=== PATIENT | male | born 1995 | race Caucasian/White ===

== ENCOUNTER 2023-10-28 07:32 | Emergency (ER) | payer SELFPAY ==
[2023-10-28 07:44] VITALS: BP 123/76; PULSE 81; RESP 18; TEMP 36.7; O2SAT 100; BMI 27.0
--- NOTE | 2023-10-28 09:46 | ED_ITS ---
HPI - Skin/Abscess/Foreign Bdy General: Chief complaint: Skin/Abscess/Foreign Body Stated complaint: Thinks he has scabies Time Seen by Provider: 10/28/23 07:33 Source: patient Mode of arrival: ambulatory History of Present Illness: 28-year-old male presents emergency his girlfriend was treated for scabies he would like to be treated at the same time. He has a few areas of itching but no rash development. Review of Systems Skin/Breast: Reports: pruritus (Mild vague itching axilla and infraumbilical); Denies: rash Physical Exam Narrative: EXAM NARRATIVE: No evidence of skin lesions suggestive of scabies at this time. Patient reported itching in the axilla and periumbilical region no rash there. Course Vital Signs: Vital signs: Vital Signs Temperature 98.1 F 10/28/23 07:44 Pulse Rate 81 10/28/23 07:44 Respiratory Rate 18 10/28/23 07:44 Blood Pressure 123/76 10/28/23 07:44 Pulse Oximetry 100 10/28/23 07:44 Oxygen Delivery Me thod Room Air 10/28/23 07:44 MDM - Skin/Abscess/Foreign Bdy Medicial Decision Making Patient is essentially because girlfriend was told she had scabies and he would like to be treated as well and I will find any objective evidence of active infection since she was treated we will go ahead and treat him with topical permethrin apply once at night wash off in the morning and repeat in 7 to 14 days if still having symptoms Medical Records I reviewed the patient's medical records. No radiology studies performed this visit Discharge Plan Discharge Patient Disposition: Home Clinical Impression: Exposure to scabies Condition: Stable Prescriptions: New permethrin 5 % cream 1 applic topical Q14D Qty: 60 0RF Rx Instructions: apply second treatment 7-14 days after first treatment if live scabies remain Discharge Orders: Discharge ED (Routine); Ordered 10/28/23 Ordered By: Jamie Andres Patient Instructions: Opioid Safety, Pain Management Activity Restrictions/Additional Instructions: Thank you for choosing [facility] for your healthcare needs today. It is very important that you follow up as instructed or that you return to the Emergency Department should you have concerns or if your condition changes or worsens in any way. You were seen today because of possible exposure to scabies from household contacts. Recommend applying the cream head to toe at night before going to bed do not apply to mouth or nose areas. Should be washed off in the shower in the morning 8 to 12 hours later. If there is persistence of symptoms you can repeat a second treatment in 7 to 14 days Coding Level of Care Code ED Roping Tender for Jayce Post
== END 2023-10-28 08:31 | disposition home or self-care (01) ==
PROVIDERS: Emergency Provider Family Medicine
DX: Z20.7 Contact with and (suspected) exposure to pediculosis, acariasis and other infestations (principal)
CPT/HCPCS: 99283

== ENCOUNTER 2024-11-08 09:25 | Emergency (ER) | payer SELFPAY ==
[2024-11-08 09:34] VITALS: BP 115/80; PULSE 97; RESP 18; TEMP 36.7; O2SAT 99; BMI 27.7
--- NOTE | 2024-11-08 09:59 | ED_ITS ---
HPI - Back Pain/Injury General: Chief Complaint: Back Pain/Injury Stated Complaint: Lower back pain Time Seen by Provider: 11/08/24 09:53 History of Present Illness: This is a healthy 29-year-old male who presents emergency room with low back pain. He was carrying a table yesterday and felt a pop in his lower back. He has pain to the right in his back with some tenderness. No saddle numbness, no urinary retention or incontinence, no focal motor deficit, no sensory deficit. no recent fever. no cough. no shortness of breath. no chest pain. no abdominal pain. no nausea or vomiting. no dysuria. no altered mental status. no edema. Related Data Previous Rx's ?Medication ?Instructions ?Recorded cyclobenzaprine 10 mg tablet 10 mg PO Q8H PRN muscle s pasm #20 11/08/24 tabs dexamethasone 6 mg tablet 6 mg PO DAILY 5 days #5 tabs 11/08/24 diclofenac sodium 50 mg 50 mg PO BID PRN pain #14 ta bs 11/08/24 tablet,delayed release Allergies Allergy/AdvReac Type Severity Reaction Status Date / Time No Known Allergies Allergy Verified 11/08/24 09:37 Review of Systems Narrative: Constitutional symptoms: Negative except as documented in HPI. Skin symptoms: Negative except as documented in HPI. Eye symptoms: Negative except as documented in HPI. ENMT symptoms: Negative except as documented in HPI. Respiratory symptoms: Negative except as documented in HPI. Cardiovascular symptoms: Negative except as documented in HPI. Gastrointestinal symptoms: Negative except as documented in HPI. Genitourinary symptoms: Negative except as documented in HPI. Musculoskeletal symptoms: Negative except as documented in HPI. Neurologic symptoms: Negative except as documented in HPI. Psychiatric symptoms: Negative except as documented in HPI. Endocrine symptoms: Negative except as documented in HPI. Physical Exam Narrative: EXAM NARRATIVE: General: Alert, no acute distress. Head: Normocephalic Neck: Trachea midline Eye: Extraocular movements are intact. Ears, nose, mouth and throat: Oral mucosa moist Respiratory: Respirations are non-labored Musculoskeletal: Normal ROM Back: no step off, no focal tenderness, some right low back tenderness to palpation. Muscular. Neurological: Alert and oriented, No focal neurological deficit observed. Psychiatric: Cooperative, appropriate mood & affect. Course Vital Signs: Vital signs: Vital Signs Temperature 98.1 F 11/08/24 09:34 Pulse Rate 97 11/08/24 09:34 Respiratory Rate 18 11/08/24 09:34 Blood Pressure 115/80 11/08/24 09:34 Pulse Oximetry 99 11/08/24 09:34 Oxygen Delivery Me thod Room Air 11/08/24 09:34 MDM - Back Pain/Injury Medical Decision Making Medical decision making: Differential diagnosis including but not limited to and based on the above HPI, review of systems and physical exam: Patient has what appears to be a mild low back strain. We will treat with anti-inflammatories and muscle relaxers. If pain continues he needs to follow-up with his primary provider Assessment and plan: Low back strain ?IM Decadron and Toradol in the emergency room - Discharged home - Discussed plan with patient. Answered any questions. - Evaluation and treatment of this problem were appropriate in the emergency setting. No radiology studies performed this visit Discharge Plan Discharge Patient Disposition: Home Clinical Impression: Strain of lumbar region Condition: Stable Prescriptions: New cyclobenzaprine 10 mg tablet 10 mg PO Q8H PRN (Reason: muscle spasm) Qty: 20 0RF dexamethasone 6 mg tablet 6 mg PO DAILY 5 Days Qty: 5 0RF diclofenac sodium 50 mg tablet,delayed release (DR/EC) 50 mg PO BID PRN (Reason: pain) Qty: 14 0RF No Action permethrin 5 % cream 1 applic topical Q14D Qty: 60 0RF Rx Instructions: apply second treatment 7-14 days after first treatment if live scabies remain Discharge Orders: Discharge ED (Routine); Ordered 11/08/24 Ordered By: Jenny Maki Discharge Diet: Usual diet Discharge Activity: Increase activity as tolerated Patient Instructions: Low Back Strain (ED), Opioid Safety, Pain Management, Patient Portal & Daniel Instructions Activity Restrictions/Additional Instructions: Thank you for choosing [facility] for your healthcare needs today. You have been screened and evaluated and felt safe for discharge. Health conditions do change or evolve sometimes and as such it is important that you follow up with your Primary Doctor to be re checked, 3-5 days is a general good time frame for follow up. You are always welcome to return to the ED for re assessment if your symptoms are worsening or you have new concerns Print Language: Marshallese Coding Level of Care Code ED Sustainable Agriculture Specialist for Jayce Post
[2024-11-08 10:19] VITALS: BP 117/69; PULSE 92; O2SAT 99
== END 2024-11-08 10:16 | disposition home or self-care (01) ==
PROVIDERS: Emergency Provider Emergency Medicine
DX: S39.012A Strain of muscle, fascia and tendon of lower back, initial encounter (principal); X58.XXXA Exposure to other specified factors, initial encounter
CPT/HCPCS: 99283